=== PATIENT | female | born 1945 | race Caucasian/White ===

== ENCOUNTER 2018-05-29 21:39 | Emergency (ER) | payer MEDICARE ==
[2018-05-29 21:43] VITALS: Wt 77.3 kg
[2018-05-29] MEDS ORDERED: K-DUR20 MEQ PO (21:47)
[2018-05-29] MEDS ORDERED: KEPPRA1000 MG PO (21:47)
[2018-05-29] MEDS ORDERED: PROTONIX40 MG PO (21:48)
[2018-05-29] MEDS ORDERED: NORVASC5 MG PO (21:48)
[2018-05-29] MEDS ORDERED: CYMBALTA60 MG PO (21:49)
[2018-05-29] MEDS ORDERED: SEROQUEL50 MG PO (21:49)
[2018-05-29 22:51] LABS: APPEARANCE HAZY (CLEAR); BILIRUBIN NEGATIVE (NEGATIVE); COLOR YELLOW (YELLOW); GLUCOSE NEGATIVE (NEGATIVE); KETONE NEGATIVE (NEGATIVE); NITRITE NEGATIVE (NEGATIVE); PROTEIN NEGATIVE (NEGATIVE); UROBILINOGEN NORMAL (NORMAL)
[2018-05-29 22:55] LABS: WHITE CELLS - URINE 0-5 /hpf (0-5)
[2018-05-29 22:56] LABS: BACTERIA MANY /hpf (NONE SEEN); EPITHELIAL CELLS 0-5 /hpf (0-5); RED CELLS - URINE 0-5 /hpf (0-5)
[2018-05-30 00:04] LABS: ALBUMIN 3.1 g/dL (3.4-5.0); ANION GAP 12.6 mmol/L (8-16); BILIRUBIN - TOTAL 0.38 mg/dL (0.2-1.3); CALCIUM 8.4 mg/dL (8.5-10.1); CARBON DIOXIDE 25.7 mmol/L (21.0-32.0); CREATININE - SERUM 0.9 mg/dL (0.6-1.3); POTASSIUM - SERUM 4.3 mmol/L (3.5-5.1); PROTEIN - SERUM 6.8 g/dL (6.4-8.2)
[2018-05-30 00:11] LABS: BASOPHILS 0.2 % (0-2); EOSINOPHILS 0.3 % (0-7); HEMOGLOBIN 11.4 g/dL (12-16); IMMATURE GRANULOCYTES 0.4 % (0-5); MCH 29.6 pg (26.0-34.0); MCHC 33.5 g/dL (31.0-37.0); MCV 88.3 fL (80.0-100.0); MEAN PLATELET VOLUME 9.7 fL (7.4-10.4); MONOCYTES 9.8 % (2-11); NEUTROPHILS 85.3 % (40-80); PLATELET COUNT 177 10x3/uL (130-400); RBC 3.85 10x6/uL (4.00-5.40); RDW 14.8 % (11.5-14.5); WBC 12.3 10x3/uL (4.8-10.8)
[2018-05-30 03:14] VITALS: BP 126/67
== END 2018-05-30 03:15 | disposition other institution (70) ==
LOC: D.ER 21:39
PROVIDERS: Family Medicine
DX: R41.82 Altered mental status, unspecified (principal); F03.90 Unspecified dementia, unspecified severity, without behavioral disturbance, psychotic disturbance, mood disturbance, and anxiety; R50.9 Fever, unspecified; G40.909 Epilepsy, unspecified, not intractable, without status epilepticus; Z93.6 Other artificial openings of urinary tract status; S06.5X9A Traumatic subdural hemorrhage with loss of consciousness of unspecified duration, initial encounter; X58.XXXA Exposure to other specified factors, initial encounter; Y93.89 Activity, other specified; Y92.89 Other specified places as the place of occurrence of the external cause; Q05.9 Spina bifida, unspecified; I10 Essential (primary) hypertension